=== PATIENT | female | born 1960 | race Caucasian/White ===

== ENCOUNTER 2022-09-19 10:32 | Emergency (ER) | payer BC ==
[~2022-09-19] VITALS: Ht 160 cm; Wt 67.1 kg
[2022-09-19 10:42] VITALS: BP_SYST 130
--- NOTE | 2022-09-19 11:45 | NUR ---
PT BIB SELF FROM HOME C/O CHEST PAIN THAT WOKE HER UP 2400 09/17. CHEST PAIN IS A DULL ACHE 5 OUT OF 10, NO EDEMA NOTED NO SOB. PT STATES LOW BACK PAIN, AND BURK FRONTAL GRADUAL ONSET 09/17. PT UNDER CARE OF FLORAL MANAGER MENTIONS HOLE IN HEART. PT STATES ONE VALSARTIN AND PLAVIX. PT VSS, RESTING COMFORTABLY WITH RAILS UP
--- NOTE | 2022-09-19 11:45 | NUR ---
Note polayohannes in EDM - 09/19/22 at 1329 by [email or web address] PT BIB SELF FROM HOME C/O CHEST PAIN, LOW BACK PAIN BiLATERAL, AND BURK FRONTAL. PT UNDER CARE OF SMT TECHNICIAN MENTIONS HOLE IN HEART. PT STATES ONE VALSARTIN AND PLAVIX. PT VSS, NO SOB, RESTING COMFORTABLY WITH RAILS UP
--- NOTE | 2022-09-19 11:47 | NUR ---
ER at bedside examining patient.
[2022-09-19 12:18] LABS: BASOPHILS # (AUTO) 0.1 K/uL (0.0-0.2); BASOPHILS % (AUTO) 1.1 % (0.0-2.0); EOSINOPHILS # (AUTO) 0.1 K/uL (0.0-0.4); EOSINOPHILS % (AUTO) 1.4 % (0.0-4.0); HEMOGLOBIN 12.1 g/dL (12.0-16.0); LYMPHOCYTES # (AUTO) 1.3 K/uL (1.0-5.5); LYMPHOCYTES % (AUTO) 23.3 % (20.5-51.5); MEAN CORPUSCULAR HEMOGLOBIN 31 pg (27-31); MEAN CORPUSCULAR HGB CONC 35 % (32-36); MEAN CORPUSCULAR VOLUME 90 fL (79.0-98.0); MONOCYTES # (AUTO) 0.6 K/uL (0.0-1.0); MONOCYTES % (AUTO) 11.2 % (1.7-9.3); NEUTROPHILS # (AUTO) 3.6 K/uL (1.8-7.7); PLATELET COUNT (AUTO) 305 K/uL (130-430); RED BLOOD CELL COUNT(AUTO) 3.88 MIL/uL (4.2-6.2); RED CELL DISTRIBUTION WIDTH 12.7 % (9.0-15.0); WHITE BLOOD COUNT (AUTO) 5.7 K/uL (4.8-10.8)
[2022-09-19 12:29] LABS: ANION GAP 6 (5-15); CALCIUM 8.9 mg/dL (8.4-11.0); CHLORIDE 95 mmol/L (98-107); CREATININE 0.58 mg/dL (0.55-1.30); GFR AFRICAN AMERICAN 135 mL/min (>90); GLUCOSE 92 mg/dL (70-99); UREA NITROGEN, BLOOD 10 mg/dL (8-21)
[2022-09-19 12:37] LABS: ALANINE AMINOTRANSFERASE 22 U/L (12-78); ALBUMIN 3.7 g/dL (3.4-4.8); ASPARTATE AMINOTRANSFERASE 15 U/L (10-37); TOTAL BILIRUBIN 0.4 mg/dL (0.0-1.0)
[2022-09-19] MEDS ORDERED: SOM350 PO (13:23)
--- NOTE | 2022-09-19 13:28 | NUR ---
ER at bedside examining patient.
[2022-09-19 13:44] VITALS: BP_SYST 119
--- NOTE | 2022-09-19 13:49 | NUR ---
Patient given written and verbal discharge instructions and verbalizes understanding. ER MD discussed with patient the results and treatment provided. Patient in stable condition. ID arm band removed. IV catheter removed intact and dressing applied, no active bleeding. Rx of CARISOPRODOL SOMA given. Patient educated on pain management and to follow up with PMD. Pain Scale . Opportunity for questions provided and answered. Medication side effect fact sheet provided.
== END 2022-09-19 13:49 | disposition home or self-care (01) ==
LOC: SED 10:32
DX: R07.9 Chest pain, unspecified (principal); I10 Essential (primary) hypertension; Z88.1 Allergy status to other antibiotic agents; Z79.899 Other long term (current) drug therapy
CPT/HCPCS: 36415; 71045; 80053; 83880; 84484; 85025; 93005; 99285